=== PATIENT | female | born 2005 | race Caucasian/White ===

== ENCOUNTER 2023-08-30 07:53 | Day surgery (SDC) | payer BC, MEDICAID, SELFPAY ==
[2023-08-30] VITALS (7 sets, daily range): BP systolic 106–128; BP diastolic 65–95; PULSE 70–98; RESP 16–22; TEMP 36.2–36.8; O2SAT 96–100; BMI 22.1
[2023-08-30] MEDS: Lactated Ringers 1,000 ML 150 ML IV (08:19)
--- NOTE | 2023-08-30 08:45 | PDOC.DSDIS_ITS ---
Date of service: 08/30/23 Time of Service: 08:47 Discharge Plan Disposition Patient Disposition: Home Condition: Good Discharge Details Reason For Visit: Tonsillectomy Attending Provider: Rupert Aguirre Primary Care Provider: Mike Lacy Home Meds and New Rx's Prescriptions: No Action Kyleena 17.5 mcg/24 hrs (5 yrs) 19.5 mg intrauterine device 1 device intrauterine ONCE Rx Instructions: as a single dose mupirocin 2 % ointment 1 applic topical BID modafinil 200 mg tablet 300 mg PO DAILY naratriptan 1 mg tablet 1 mg PO DIRECTED PRN Discharge Instructions Additional Instructions: My cell phone number is [phone]. Please call with any questions or concerns. If you are unable to reach me and you feel it is an emergency, please call 911 or proceed to the emergency room Stand Alone Forms: ENT- T&A InstrYessenia Aguirre Referrals: Rupert Aguirre MD [ [facility] STAFF PHYSICIAN] - (1 month, please call for appointment prior to patient's departure) Discharge Orders Discharge Orders: Discharge Order (Routine); Ordered 08/30/23 Ordered By: Rupert Aguirre
--- NOTE | 2023-08-30 08:45 | W.PM.OP ---
Date of service: 08/30/23 Time of Service: 10:06 Operative Note Operative Note DATE OF PROCEDURE: 08/30/23 PRE-OP DIAGNOSIS: Chronic tonsillitis, oropharyngeal dysphagia POST-OP DIAGNOSIS: same PROCEDURE: Tonsillectomy SURGEON: Rupert Aguirre ANESTHESIA TYPE: General LMA/ETT Refer to Anesthesia Record ESTIMATED BLOOD LOSS: 40 PATHOLOGY: other (Tonsils) COMPLICATIONS: None Patient was transported to: PACU Patient's condition: stable Indications: Patient with the above problems. Options were explained to patient and her significant other. She wished to proceed with tonsillectomy. Risks of narcotics including respiratory depression and dependence were outlined once again. Reasonable expectations for surgery were also discussed. H&P was reviewed. There have been no changes. Findings: 1+ adenoids, no debris or inflammation, 3+ tonsils with copious cryptic debris, significant scar tissue between the tonsil and the tonsillar fossa bilaterally. Palate intact to inspection and palpation. Posterior choana widely patent. Procedure Description: After obtaining an adequate level of general endotracheal anesthesia the patient was positioned in supine position and prepped and draped in appropriate fashion. Nan-Bert mouthgag was carefully introduced into the oral cavity and opened revealed a soft and hard palate which were examined revealing no evidence of an occult Cleft palate. Dental mirror was used to examine the adenoids. Attention was then turned to the tonsils. Each tonsil was injected in the submucosal space around the anterior, superior, and posterior aspects with 0.5% Marcaine with 1/100,000 epinephrine. A 12 blade was then used to incise mucosa along the superior, anterior, and posterior edges of the tonsils. A Jose elevator was used to disarticulate the tonsil from the superior tonsillar fossa and then Metcalf blade used to strip the tonsil free from the tonsillar fossa down to the inferior pole at which point in time a tonsillar snare was used to amputate the tonsil from the tonsillar fossa. Once been accomplished bilaterally, electrocautery suction tip catheter set on 15 W coagulation was used to afford relative hemostasis within the tonsillar beds. Valsalva failed to induce further bleeding. The Nan-Bert mouthgag was relaxed and reopened revealing no further bleeding. The Nan-Bert Gag was then relaxed and removed and the patient was then awakened and extubated by anesthesia and taken the recovery room in stable condition. I was present throughout the entire case.
--- NOTE | 2023-08-30 08:51 | W.ANESPRE ---
General Info Date of Service Date Performed: 08/30/23 Height: 5 ft 4.17 in Weight: 58.7 kg Body Mass Index (BMI): 22.1 Surgical Procedure: Operation Date: 08/30/23 08:55 Proposed Procedure Side Surgeon p Tonsillectomy & Possible Adenoidectomy Rupert Aguirre MD Meds Allergies and Home Medications Allergies Allergy/AdvReac Type Severity Reaction Status Date / Time No Known Allergies Allergy Verified 08/30/23 08:02 Home Medication Medication Instructions Recorded levonorgestrel 17.5 mcg/24 hrs 1 device intrauterine ONCE 06/09/23 (5yrs) 19.5mg intrauterine device (Kyleena) mupirocin 2 % topical ointment 1 applic topical BID 06/09/23 modafinil 200 mg tablet 300 mg PO DAILY 07/22/23 naratriptan 1 mg tablet 1 mg PO DIRECTED PRN 07/22/23 Current Visit Medications: Current Medications Generic Name Dose Route Start Last Admin Trade Name Freq PRN Reason Stop Dose Admin Acetaminophen 320 - 650 mg 08/30/23 08:44 Acetaminophen Solution 650 Mg/20.3 Ml Cup PO 09/29/23 08:43 Q4H PRN PRN Ringer's Solution 1,000 mls @ 150 mls/hr 08/30/23 06:00 08/30/23 08:19 IV 09/26/23 23:59 150 mls/hr INFUSION CLAUDIA Administration Cefazolin Sodium/Dextrose 2 gm in 50 mls @ 100 mls/hr 08/30/23 06:00 Ancef Duplex IVPB 08/30/23 16:00 PREOP CLAUDIA Tranexamic Acid 1,000 mg/ 60 mls @ 360 mls/hr 08/30/23 06:00 Sodium Chloride IVPB 08/30/23 16:00 PREOP CLAUDIA IV Miscellaneous Supplies 1 each 08/30/23 06:00 Iv Access IV 09/26/23 23:59 DIRECTED CLAUDIA Ibuprofen 600 mg 08/30/23 08:44 Ibuprofen 600 Mg Tab PO 09/29/23 08:43 Q6H PRN PRN Sodium Chloride 0 ml 08/30/23 06:00 Normal Saline Flush 10 Ml Syr IV 09/26/23 23:59 PRN PRN Sodium Chloride 0 ml 08/30/23 06:00 Normal Saline 10 Ml Vial IJ 09/26/23 23:59 DIRECTED PRN Sterile Water 0 ml 08/30/23 06:00 Water,Injection,Sterile 10 Ml Vial IJ 09/26/23 23:59 DIRECTED PRN PFSH Active Problems Active Problems: Problem Status Onset Code Oropharyngeal dysphagia R13.12 Medical History Medical History Joint pain of ankle and foot Ingrowing toenail 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 denies Fracture of clavicle Eczema Dysmenorrhea Acute atopic conjunctivitis of both eyes Surgical History Surgical History H/O wisdom tooth extraction Tobacco Smoking/Tobacco Use Status: Never Alcohol Alcohol Intake: never Substance Use Substance use: Never Substance use type: does not use Vital Signs and Lab Results Vital Signs Most Recent Vital Signs in EMR: Most Recent Vital Signs Temp Pulse Resp BP Pulse Ox 36.2 C L 95 H 18 128/95 H 100 08/30/23 08:00 08/30/23 08:00 08/30/23 08:00 08/30/23 08:00 08/30/23 08:00 Point of Care Results Point of Care Results: POC- Test(urine) Negative 08/30/23 08:18 Lab Results Blood Type / Crossmatch: No Data to Display Complete Blood Count: No Data to Display Complete Metabolic Panel: No Data to Display Liver Function Panel: No Data to Display Coagulation Panel: No Data to Display Cardiac Panel: No Data to Display Arterial Blood Gas: No Data to Display Venous Blood Gas: No Data to Display Pancreas Panel: No Data to Display Thyroid Panel: No Data to Display Infectious Disease: No Data to Display Blood Cultures: No Data to Display Toxicology Panel: No Data to Display Panel: No Data to Display Anesthesia Assessment and Plan Anesthesia History Personal History: Delayed Emergence Family History: No Family History of Anesthesia Complications Exercise Tolerance Exercise Tolerance: Metabolic Equivalents>4 Pertinent Negatives Pertinent Negatives: No Symptoms of GERD, No Major Cardiovascular Symptoms or Complaints, No Major Pulmonary Symptoms or Complaints and No History of CVA/TIA Cardiac & Pulmonary Exam Cardiac Exam: Normal S1/S2 Heart Sounds Pulmonary Exam: Clear Bilateral Breath Sounds Implantable Cardiac Device Does patient have a Pacemaker or an ICD?: No Airway Exam Known Difficult Airway: No Mallampati Class: 1 Mouth Opening: Normal (> 3cm) Thyromental Distance: Greater than 3 cm Neck Range of Motion: Full ROM Neck Circumference: Normal Teeth Condition: Normal Dentition ASA Classification ASA Score: ASA 2 Emergency Case?: No NPO Status NPO Status: NPO Clears >2 hours, Solids >8 hours Status Status: Negative HCG Anesthesia Plan Resuscitation Status: Full Code Anesthesia Technique: General Anesthesia Airway Planned: Endotracheal Tube Monitors Used: Standard Monitors and SedLine
[2023-08-30] MEDS: ceFAZolin 2 GM/50 ML BAG IVPB (09:31)
--- NOTE | 2023-08-30 09:45 | TONSIL_PTH ---
PATIENT: Chapincito Edmondson LOC: [facility] U#:[id number] AGE/SX: 18/F ROOM: RE08/30/[address]: Rupert Aguirre MD : 2005 BED: DIS: 08/30/2023 SPEC #: [id number] RECD: 08/30/23 12:50 STATUS: [place] REQ #: [id number] AGNES: 08/30/23 09:[address]: Rupert Aguirre DEPT: Surgical Specimen RECD BY: Mandy Atwood ENTERED: 08/30/23 12:51 SP TYPE: TONSIL OTHR DR: Mike Lacy Tissues: 1 - TONSIL AGE 17 & OVER 2 - TONSIL AGE 17 & OVER Procedures: GROSS AND MICRO LEVEL 3 Comments: [id number]
--- NOTE | 2023-08-30 11:15 | W.ANESPOSTOP ---
Postoperative Evaluation Date, Time and Location Date Performed: 08/30/23 Time Performed: 10:38 Patient Location: PACU Vital Signs Most Recent Imported Vital Signs: Most Recent Vital Signs Temp Pulse Resp BP Pulse Ox 36.4 C L 81 16 106/71 100 08/30/23 10:44 08/30/23 10:44 08/30/23 10:44 08/30/23 10:44 08/30/23 10:44 Pain Score Most Recent Pain Score: Most Recent Pain Score Pain Level 2 08/30/23 10:44 Assessment Mental Status: Awake (Alert & Oriented to Patient Baseline) Airway and Respiratory Function: Patent airway with normal (patient baseline) respiratory exam Cardiovascular Function: Hemodynamically Stable Hydration Status: Adequately Hydrated Nausea & Vomiting: No Nausea or Vomiting Pain: Pain is tolerable per patient Peripheral Nerve Block: Patient did not receive a nerve block
== END 2023-08-30 11:44 | disposition home or self-care (01) ==
PROVIDERS: PCP Nurse Practitioner Family; Visit Provider Otolaryngology
PROC: (CPT 42826; principal; 2023-08-30 08:45)
DX: J35.01 Chronic tonsillitis (principal); R13.12 Dysphagia, oropharyngeal phase
CPT/HCPCS: 42826; 81025; 88304; J0131; J0690; J1100; J2001; J2250; J2405; J2704; J3010